=== PATIENT | male | born 1995 | race Caucasian/White ===

== ENCOUNTER 2021-03-05 15:47 | Emergency (ER) | payer OTHER ==
[~2021-03-05 15:47] MED LIST: AMOXICILLIN500 MG PO; BACTROBAN OINT22 GM EXT; CORTISPORIN OTI10 ML EARLF; DELSYM30 MG/5 ML PO; ERYTHROMYCIN O3.5 GM EYELF; FLONASE 0.05% N16 GM; FLOXIN 0.3% OTIC5 ML AD; IBUPROFEN600 MG PO; ZYRTEC10 MG PO
[2021-03-05] MEDS ORDERED: IBUPROFEN600 MG PO (18:21)
== END 2021-03-05 18:28 | disposition home or self-care (01) ==
LOC: ER1 15:47
DX: S20.212A Contusion of left front wall of thorax, initial encounter (principal); S80.01XA Contusion of right knee, initial encounter; W18.40XA Slipping, tripping and stumbling without falling, unspecified, initial encounter; Z88.2 Allergy status to sulfonamides
CPT/HCPCS: 71046; 73552; 73564; 99283

== ENCOUNTER 2021-03-25 14:16 | Emergency (ER) | payer OTHER ==
[2021-03-25] MEDS ORDERED: AMOXICILLIN875 MG PO (16:04)
[2021-03-25] MEDS ORDERED: IBU800 MG PO (16:05)
== END 2021-03-25 16:07 | disposition home or self-care (01) ==
LOC: ER1 14:16
DX: H66.91 Otitis media, unspecified, right ear (principal); F17.220 Nicotine dependence, chewing tobacco, uncomplicated; Z88.2 Allergy status to sulfonamides; Z79.899 Other long term (current) drug therapy
CPT/HCPCS: 99282

== ENCOUNTER 2021-05-02 12:04 | Emergency (ER) | payer OTHER ==
[~2021-05-02 12:04] MED LIST changes: +AMOXICILLIN875 MG PO; +IBU800 MG PO
== END 2021-05-02 13:05 | disposition home or self-care (01) ==
LOC: ER1 12:04
DX: S50.01XA Contusion of right elbow, initial encounter (principal); Z88.2 Allergy status to sulfonamides; W19.XXXA Unspecified fall, initial encounter
CPT/HCPCS: 73080; 99283

== ENCOUNTER 2021-10-18 16:10 | Emergency (ER) | payer OTHER ==
[2021-10-18] MEDS ORDERED: IBUPROFEN400 MG PO (16:33)
[2021-10-18] MEDS ORDERED: AMOXICILLIN500 MG PO (16:33)
== END 2021-10-18 16:33 | disposition home or self-care (01) ==
LOC: ER1 16:10
DX: H66.92 Otitis media, unspecified, left ear (principal)
CPT/HCPCS: 99282

== ENCOUNTER 2021-11-12 20:47 | Emergency (ER) | payer OTHER ==
[~2021-11-12 20:47] MED LIST changes: +IBUPROFEN400 MG PO
[2021-11-12] MEDS ORDERED: ANTIBIOTIC OINT28 GM TP (21:10)
== END 2021-11-12 21:15 | disposition home or self-care (01) ==
LOC: ER1 20:47
DX: L08.9 Local infection of the skin and subcutaneous tissue, unspecified (principal); Z88.2 Allergy status to sulfonamides
CPT/HCPCS: 99283

== ENCOUNTER 2021-11-28 15:59 | Emergency (ER) | payer OTHER ==
[~2021-11-28 15:59] MED LIST changes: +ANTIBIOTIC OINT28 GM TP
== END 2021-11-28 16:39 | disposition home or self-care (01) ==
LOC: ER1 15:59
DX: H92.01 Otalgia, right ear (principal); Z88.2 Allergy status to sulfonamides
CPT/HCPCS: 99282

== ENCOUNTER 2021-12-29 10:05 | Emergency (ER) | payer OTHER | END 2021-12-29 12:07 | disposition home or self-care (01) | LOC: ER1 10:05 | DX: S30.0XXA Contusion of lower back and pelvis, initial encounter (principal); Z88.2 Allergy status to sulfonamides; W18.2XXA Fall in (into) shower or empty bathtub, initial encounter | CPT/HCPCS: 72100; 73564; 99283 ==

== ENCOUNTER 2022-01-25 22:35 | Emergency (ER) | payer OTHER ==
[2022-01-25 23:08] LABS: HEMOGLOBIN 14.4 gm/dl (14.0-17.5); RED BLOOD COUNT 4.88 M/UL (4.20-5.50); WHITE BLOOD COUNT 11.2 K/UL (4.5-11.0)
[2022-01-25 23:48] LABS: BUN/CREATININE RATIO 9 (0-10)
== END 2022-01-26 02:18 | disposition home or self-care (01) ==
LOC: ER1 22:35
PROVIDERS: Family Medicine
DX: R07.9 Chest pain, unspecified (principal); Z88.2 Allergy status to sulfonamides
CPT/HCPCS: 71045; 80053; 82550; 82553; 84484; 85025; 93005; 99285

== ENCOUNTER 2022-02-22 20:15 | Emergency (ER) | payer OTHER ==
[2022-02-23] MEDS ORDERED: IBUPROFEN600 MG PO (01:29)
== END 2022-02-23 01:30 | disposition home or self-care (01) ==
LOC: ER1 20:15
DX: S80.01XA Contusion of right knee, initial encounter (principal); Z88.2 Allergy status to sulfonamides; W06.XXXA Fall from bed, initial encounter
CPT/HCPCS: 73564; 99283

== ENCOUNTER 2022-03-31 14:10 | Emergency (ER) | payer OTHER | END 2022-03-31 17:21 | disposition home or self-care (01) | LOC: ER1 14:10 | DX: G40.909 Epilepsy, unspecified, not intractable, without status epilepticus (principal); F17.200 Nicotine dependence, unspecified, uncomplicated | CPT/HCPCS: 72072; 72100; 99284 ==

== ENCOUNTER 2022-06-03 12:59 | Emergency (ER) | payer OTHER ==
[2022-06-03] MEDS ORDERED: NAPROSYN500 MG PO (14:04)
== END 2022-06-03 14:05 | disposition home or self-care (01) ==
LOC: ER1 12:59
DX: S09.91XA Unspecified injury of ear, initial encounter (principal); Z88.2 Allergy status to sulfonamides; W13.0XXA Fall from, out of or through balcony, initial encounter
CPT/HCPCS: 99282

== ENCOUNTER 2022-07-10 14:20 | Emergency (ER) | payer OTHER ==
[~2022-07-10 14:20] MED LIST changes: +NAPROSYN500 MG PO
== END 2022-07-10 19:41 | disposition home or self-care (01) ==
LOC: ER1 14:20
DX: H93.8X2 Other specified disorders of left ear (principal); Z88.2 Allergy status to sulfonamides
CPT/HCPCS: 99282

== ENCOUNTER 2022-07-14 17:37 | Emergency (ER) | payer OTHER ==
[2022-07-14 19:16] LABS: HEMOGLOBIN 14.8 gm/dl (14.0-17.5); RED BLOOD COUNT 5.04 M/UL (4.20-5.50); WHITE BLOOD COUNT 9.4 K/UL (4.5-11.0)
[2022-07-14 19:39] LABS: BUN/CREATININE RATIO 15 (0-10)
== END 2022-07-14 21:48 | disposition home or self-care (01) ==
LOC: ER1 17:37
PROVIDERS: Emergency Medicine
DX: U07.1 COVID-19 (principal)
CPT/HCPCS: 71045; 80053; 82550; 82553; 84484; 85025; 93005; 99284; U0002

== ENCOUNTER → 2022-08-06 | Outpatient (CLI) | payer OTHER | LOC: KOH-I 09:45 | DX: M54.50 Low back pain, unspecified (principal); M51.37 Other intervertebral disc degeneration, lumbosacral region | CPT/HCPCS: 72148 ==